=== PATIENT | female | born 1950 | race Two or more races ===

== ENCOUNTER → 2016-12-27 | Outpatient (CLI) | payer OTHER | LOC: BMCIMAGING 08:57 | PROVIDERS: ATTEND Internal Medicine | DX: J98.4 Other disorders of lung (principal); R91.1 Solitary pulmonary nodule ==

== ENCOUNTER → 2016-12-30 | Outpatient (CLI) | payer OTHER | LOC: BMCIMAGING 13:58 | PROVIDERS: ATTEND Internal Medicine | DX: R91.1 Solitary pulmonary nodule (principal) ==

== ENCOUNTER → 2017-02-07 | Outpatient (CLI) | payer OTHER | LOC: FIMAGING 10:51 | PROVIDERS: ATTEND Internal Medicine | DX: R91.1 Solitary pulmonary nodule (principal); R91.8 Other nonspecific abnormal finding of lung field; K76.0 Fatty (change of) liver, not elsewhere classified; I25.10 Atherosclerotic heart disease of native coronary artery without angina pectoris ==

== ENCOUNTER 2017-02-12 00:25 | Inpatient (IN) | payer OTHER ==
[2017-02-12] MEDS ORDERED: NS 2,300 ML IV ONE (00:42)
[2017-02-12] MEDS ORDERED: ACETAMINOPHEN 500 MG TAB PO ONE (00:44)
[2017-02-12] MEDS ORDERED: ACETAMINOPHEN 500 MG TAB ONE (00:44)
--- NOTE | 2017-02-12 00:44 | CPEKG ---
Heart Rate: 120 RR Interval: 500 P-R Interval: 116 QRSD Interval: 72 QT Interval: 312 QTC Interval: 441 P [place]: 8 QRS [place]: -34 T Wave [place]: 91 EKG Severity - ABNORMAL ECG - EKG Impression: SINUS TACHYCARDIA EKG Impression: LEFT AXIS DEVIATION EKG Impression: PROBABLE LVH WITH SECONDARY REPOL ABNRM Electronically Signed By: Dana Ivan 13-Feb-2017 06:05:30
[2017-02-12] MEDS ORDERED: IBUPROFEN 600 MG TAB PO ONE ×2 (00:45)
[2017-02-12 01:04] LABS: % IMMATURE GRANULYOCYTES 0.5 % (0.0-1.1); ABSOLUTE IMMATURE GRANULOCYTES 0.06 10^3/uL (0.00-0.10); ABSOLUTE NRBC COUNT 0.02 10^3/uL (0-0.01); ADD DIFF? NO; ADD MORPH? NO; ADD SCAN? NO; ATYPICAL LYMPHOCYTE FLAG 0 (0-99); FRAGMENT RBC FLAG 0 (0-99); HEMATOCRIT 41.2 % (38.0-47.0); HEMOGLOBIN 14.1 g/dL (12.6-16.3); LEFT SHIFT FLG 10 (0-99); LIPEMIA HEMOLYSIS FLAG 90 (0-99); MEAN CELL HEMOGLOBIN 30.6 pg (27.9-34.1); MEAN CELL HEMOGLOBIN CONCENTR. 34.2 g/dL (32.4-36.7); MEAN CELL VOLUME 89.4 fL (81.5-99.8); NRBC-AUTO% 0.2 % (0.0-0.2); PLATELET CLUMPS FLAG 10 (0-99); PLATELET COUNT 161 10^3/uL (150-400); RED BLOOD CELL COUNT 4.61 10^6/uL (4.18-5.33); RED CELL DISTRIBUTION WIDTH 13.2 % (11.5-15.2)
[2017-02-12 01:14] LABS: ANION GAP 13 mEq/L (8-16); BILIRUBIN,TOTAL 0.9 mg/dL (0.1-1.4); CALCIUM 9.7 mg/dL (8.5-10.4); CARBON DIOXIDE 25 mEq/l (22-31); CHLORIDE 101 mEq/L (97-110); CREATININE 0.7 mg/dL (0.6-1.0); GLOMERULAR FILTRATION RATE > 60; GLUCOSE 170 mg/dL (70-100); POTASSIUM 4.4 mEq/L (3.5-5.2); SODIUM 139 mEq/L (134-144)
[2017-02-12 01:26] LABS: APTT 26.9 SEC (23.0-38.0); INR 1.01 (0.83-1.16); PROTIME(PATIENT) 13.2 SEC (12.0-15.0)
[2017-02-12 01:41] LABS: COLOR YELLOW; LEUKOCYTE ESTERASE,URINE NEGATIVE (NEGATIVE); NITRITE,URINE NEGATIVE (NEGATIVE)
[2017-02-12 01:55] LABS: LACGHOST ORDER
[2017-02-12] MEDS ORDERED: AZITHROMYCIN 250 MG TAB PO ONE (01:57)
[2017-02-12] MEDS ORDERED: ONDANSETRON 4 MG/2 ML VIAL IVP PRN (02:59)
[2017-02-12] MEDS ORDERED: ACETAMINOPHEN 325 MG TAB PO PRN (02:59)
[2017-02-12] MEDS ORDERED: ALBUTEROL 3 ML DEYVIAL IH PRN (02:59)
[2017-02-12] MEDS ORDERED: ONDANSETRON DISINTEGRATING 4 MG TAB PO PRN (02:59)
--- NOTE | 2017-02-12 03:10 | EDPHY ---
H & P Stated Complaint: fever Time Seen by Provider: 02/12/17 00:43 HPI/ROS: HPI The patient presents with fever which began approximately 4:00 p.m. today which was associated with confusion. Her heard her talking to other people who were not in the room tonight. He said she felt hot. She has had a cough over the last 4 days which is getting progressively worse and is associated with shortness of breath. She is currently being evaluated for pulmonary problems and had a CT scan of her lungs recently for this. She has not had any runny nose, sore throat, diarrhea, vomiting, abdominal pain.. REVIEW OF SYSTEMS Constitutional: Positive for fever and chills Eyes: No discharge. ENT: No sore throat. Cardiovascular: No chest pain, no palpitations. Respiratory: Positive for cough, no shortness of breath. Gastrointestinal: No abdominal pain, no vomiting. Genitourinary: No hematuria. Musculoskeletal: No back pain. Skin: No rashes. Neurological: No headache. PMHx: Diabetes, recent pelvic surgery Soc Hx: Lives at home with her PHYSICAL General Appearance: Alert, no distress Eyes: Pupils equal and round no pallor or injection ENT, Mouth: Mucous membranes moist Respiratory: Slight tachypnea, no retractions, coarse breath sounds throughout all lung leonard Cardiovascular: Tachycardic rate with regular rhythm Gastrointestinal: Abdomen is soft and non-tender, no masses, bowel sounds normal Neurological: A&O, moves all extremities Skin: Warm and dry, no rashes Musculoskeletal: Neck is supple non tender Extremities: symmetrical, full range of motion Psychiatric: Patient is oriented X 3, there is no agitation Source: Patient, Family Exam Limitations: No limitations - Personal History Current Tetanus/Diphtheria Vaccine: Unsure Current Tetanus Diphtheria and Acellular Pertussis (TDAP): Unsure - Medical/Surgical History Hx Asthma: No Hx Chronic Respiratory Disease: No Hx Diabetes: Yes Hx Cardiac Disease: No Hx Renal Disease: No Hx Cirrhosis: No Hx Alcoholism: No Hx HIV/AIDS: No Hx Splenectomy or Spleen Trauma: No Other PMH: DM2, abd surgery 01/11, kidney problems - Social History Smoking Status: Never smoked Constitutional: Initial Vital Signs Temperature (C) 38.8 C H 02/12/17 00:28 Heart Rate 132 H 02/12/17 00:28 Respiratory Rate 32 H 02/12/17 00:28 Blood Pressure 137/78 H 02/12/17 00:28 O2 Sat (%) 85 L 02/12/17 00:28 O2 Delivery Mode Nasal Cannula O2 (L/minute) 4 Allergies/Adverse Reactions: No Known Allergies Allergy (Unverified 01/01/11 20:55) Home Medications: Medication Instructions Recorded "Diet Cntrolled Diabetes" 01/01/11 DULoxetine [Cymbalta] 60 mg PO DAILY 01/01/11 Oxycodone HCl [OXYCODONE HCL] 5 mg PO PRN 01/01/11 Pregabalin [Lyrica] 75 mg PO DAILY 01/01/11 Metformin HCl 02/12/17 Medical Decision Making - Diagnostics Imaging Results: Chest x-ray two views shows no obvious infiltrate, no cardiomegaly, interpreted by me, radiology interpretation is pending. Differential Diagnosis: This is a 66-year-old female with diabetes who presents with fever over the last several hours and cough for the last 4 days. On exam she is tachycardic, febrile, hypoxic. She has coarse breath sounds. Differential diagnosis includes sepsis, pneumonia, UTI, CHF exacerbation. In the emergency room, patient was given a fluid bolus, blood cultures were checked, initial lactate returned at 3. Repeat lactate trended down to 2.2. She did have a leukocytosis. Chest x-ray was unremarkable, however pneumonia is most likely diagnosis, thus patient was given ceftriaxone and azithromycin. She will be admitted to the hospitalist service and I have consulted with Dr. Radford. Critical Care Time: CRITICAL CARE Critical care time spent by me, Dr. Ivan, exclusively with this patient was 30 minutes, exclusive of PA time and exclusive of procedures. The organ system at risk was cardiac and I gave IV fluids, broad-spectrum antibiotics, admitted the patient to the hospitalist service for sepsis to prevent worsening of the patients condition. - Data Points Laboratory Results: Laboratory Results 02/12/17 00:44 02/12/17 00:44 02/12/17 02/12/17 02/12/17 02:25 01:34 00:44 WBC RBC Hgb POC Hgb Hct POC Hct MCV MCH MCHC RDW Plt Count MPV Neut % (Auto) Lymph % (Auto) [place] % (Auto) Eos % (Auto) Baso % (Auto) Nucleat RBC Rel Count Absolute Neuts (auto) Absolute Lymphs (auto) Absolute Monos (auto) Absolute Eos (auto) Absolute Basos (auto) Absolute Nucleated RBC Immature Gran % Immature Gran # PT INR APTT VBG Lactic Acid 2.2 mmol/L H mmol/L (0.7-2.1) POC Sodium Sodium 139 mEq/L mEq/L (134-144) POC Potassium Potassium 4.4 mEq/L mEq/L (3.5-5.2) POC Chloride Chloride 101 mEq/L mEq/L (97-110) Carbon Dioxide 25 mEq/l mEq/l (22-31) Anion Gap 13 mEq/L mEq/L (8-16) POC BUN BUN 16 mg/dL mg/dL (7-23) Creatinine 0.7 mg/dL mg/dL (0.6-1.0) POC Creatinine Estimated GFR > 60 Glucose 170 mg/dL H mg/dL (70-100) POC Glucose Calcium 9.7 mg/dL mg/dL (8.5-10.4) Total Bilirubin 0.9 mg/dL mg/dL (0.1-1.4) Urine Color YELLOW Urine Appearance MODERATELY TURBID Urine pH 7.0 (5.0-7.5) Ur Specific [place] 1.015 (1.002-1.030) Urine Protein NEGATIVE (NEGATIVE) Urine Ketones NEGATIVE (NEGATIVE) Urine Blood NEGATIVE (NEGATIVE) Urine Nitrate NEGATIVE (NEGATIVE) Urine Bilirubin NEGATIVE (NEGATIVE) Urine Urobilinogen NEGATIVE EU EU (0.2-1.0) Ur Leukocyte Esterase NEGATIVE (NEGATIVE) Urine Glucose NEGATIVE (NEGATIVE) 02/12/17 02/12/17 02/12/17 00:44 00:44 00:44 WBC 13.31 10^3/uL H 10^3/uL (3.80-9.50) RBC 4.61 10^6/uL 10^6/uL (4.18-5.33) Hgb 14.1 g/dL g/dL (12.6-16.3) POC Hgb Hct 41.2 % % (38.0-47.0) POC Hct MCV 89.4 fL fL (81.5-99.8) MCH 30.6 pg pg (27.9-34.1) MCHC 34.2 g/dL g/dL (32.4-36.7) RDW 13.2 % % (11.5-15.2) Plt Count 161 10^3/uL 10^3/uL (150-400) MPV 11.0 fL fL (8.7-11.7) Neut % (Auto) 69.3 % % (39.3-74.2) Lymph % (Auto) 23.3 % % (15.0-45.0) [place] % (Auto) 5.9 % % (4.5-13.0) Eos % (Auto) 0.5 % L % (0.6-7.6) Baso % (Auto) 0.5 % % (0.3-1.7) Nucleat RBC Rel Count 0.2 % % (0.0-0.2) Absolute Neuts (auto) 9.22 10^3/uL H 10^3/uL (1.70-6.50) Absolute Lymphs (auto) 3.10 10^3/uL H 10^3/uL (1.00-3.00) Absolute Monos (auto) 0.79 10^3/uL 10^3/uL (0.30-0.80) Absolute Eos (auto) 0.07 10^3/uL 10^3/uL (0.03-0.40) Absolute Basos (auto) 0.07 10^3/uL 10^3/uL (0.02-0.10) Absolute Nucleated RBC 0.02 10^3/uL H 10^3/uL (0-0.01) Immature Gran % 0.5 % % (0.0-1.1) Immature Gran # 0.06 10^3/uL 10^3/uL (0.00-0.10) PT 13.2 SEC SEC (12.0-15.0) INR 1.01 (0.83-1.16) APTT 26.9 SEC SEC (23.0-38.0) VBG Lactic Acid 3.0 mmol/L H mmol/L (0.7-2.1) POC Sodium Sodium POC Potassium Potassium POC Chloride Chloride Carbon Dioxide Anion Gap POC BUN BUN Creatinine POC Creatinine Estimated GFR Glucose POC Glucose Calcium Total Bilirubin Urine Color Urine Appearance Urine pH Ur Specific [place] Urine Protein Urine Ketones Urine Blood Urine Nitrate Urine Bilirubin Urine Urobilinogen Ur Leukocyte Esterase Urine Glucose 02/12/17 00:43 WBC RBC Hgb POC Hgb 14.6 gm/dL gm/dL (12.6-16.3) Hct POC Hct 43 % % (38-47) MCV MCH MCHC RDW Plt Count MPV Neut % (Auto) Lymph % (Auto) [place] % (Auto) Eos % (Auto) Baso % (Auto) Nucleat RBC Rel Count Absolute Neuts (auto) Absolute Lymphs (auto) Absolute Monos (auto) Absolute Eos (auto) Absolute Basos (auto) Absolute Nucleated RBC Immature Gran % Immature Gran # PT INR APTT VBG Lactic Acid POC Sodium 139 mEq/L mEq/L (134-144) Sodium POC Potassium 4.1 mEq/L mEq/L (3.3-5.0) Potassium POC Chloride 97 mEq/L mEq/L (97-110) Chloride Carbon Dioxide Anion Gap POC BUN 17 mg/dL mg/dL (7-23) BUN Creatinine POC Creatinine 0.7 mg/dL mg/dL (0.6-1.0) Estimated GFR Glucose POC Glucose 176 mg/dL H mg/dL (70-100) Calcium Total Bilirubin Urine Color Urine Appearance Urine pH Ur Specific [place] Urine Protein Urine Ketones Urine Blood Urine Nitrate Urine Bilirubin Urine Urobilinogen Ur Leukocyte Esterase Urine Glucose Medications Given: Discontinued Medications Acetaminophen (Tylenol) 1,000 mg PO EDNOW ONE Stop: 02/12/17 00:45 Last Admin: 02/12/17 00:52 Dose: 1,000 mg Azithromycin (Zithromax) 500 mg PO EDNOW ONE PRN Reason: Protocol Stop: 02/12/17 01:58 Last Admin: 02/12/17 02:40 Dose: 500 mg Sodium Chloride (Ns) 2,300 mls @ 4,600 mls/hr 30 ml/kg infuse over 30 min ( 2300 ml) IV EDNOW ONE PRN Reason: Protocol Stop: 02/12/17 01:11 Last Admin: 02/12/17 00:52 Dose: 2,300 mls Ceftriaxone Sodium/Dextrose (Rocephin 1 Gm (Premix)) 50 mls @ 100 mls/hr IV EDNOW ONE PRN Reason: Protocol Stop: 02/12/17 02:26 Last Admin: 02/12/17 02:18 Dose: 50 mls Ibuprofen (Motrin) 600 mg PO EDNOW ONE Stop: 02/12/17 00:46 Last Admin: 02/12/17 00:52 Dose: 600 mg Point of Care Test Results: 02/12/17 00:43 POC Sodium 139 POC Potassium 4.1 POC Chloride 97 POC BUN 17 POC Creatinine 0.7 POC Glucose 176 H Departure - Departure Disposition: [facility] Inpatient Acute Clinical Impression: Cough Sepsis Qualifiers: Sepsis type: sepsis due to unspecified organism Qualified Code(s): A41.9 - Sepsis, unspecified organism Condition: Good
[2017-02-12 05:15] LABS: % IMMATURE GRANULYOCYTES 0.5 % (0.0-1.1); ABSOLUTE IMMATURE GRANULOCYTES 0.06 10^3/uL (0.00-0.10); ADD DIFF? NO; ADD MORPH? NO; ADD SCAN? NO; ATYPICAL LYMPHOCYTE FLAG 10 (0-99); FRAGMENT RBC FLAG 0 (0-99); HEMATOCRIT 35.5 % (38.0-47.0); HEMOGLOBIN 11.7 g/dL (12.6-16.3); LEFT SHIFT FLG 10 (0-99); LIPEMIA HEMOLYSIS FLAG 80 (0-99); MEAN CELL HEMOGLOBIN 30.4 pg (27.9-34.1); MEAN CELL VOLUME 92.2 fL (81.5-99.8); MEAN PLATELET VOLUME 11.1 fL (8.7-11.7); PLATELET CLUMPS FLAG 0 (0-99); PLATELET COUNT 135 10^3/uL (150-400); RED BLOOD CELL COUNT 3.85 10^6/uL (4.18-5.33); RED CELL DISTRIBUTION WIDTH 13.3 % (11.5-15.2)
[2017-02-12 05:30] LABS: ALANINE AMINOTRANSFERASE 70 IU/L (9-52); ALBUMIN 3.4 g/dL (3.5-5.0); ALKALINE PHOSPHATASE 78 IU/L (38-126); ANION GAP 12 mEq/L (8-16); ASPARTATE AMINOTRANSFERASE 49 IU/L (14-46); BILIRUBIN,TOTAL 0.6 mg/dL (0.1-1.4); CALCIUM 8.2 mg/dL (8.5-10.4); CARBON DIOXIDE 21 mEq/l (22-31); CHLORIDE 109 mEq/L (97-110); CREATININE 0.6 mg/dL (0.6-1.0); GLOMERULAR FILTRATION RATE > 60; GLUCOSE 162 mg/dL (70-100); POTASSIUM 3.8 mEq/L (3.5-5.2); SODIUM 142 mEq/L (134-144); TOTAL PROTEIN 5.3 g/dL (6.3-8.2)
[2017-02-12 05:37] LABS: TROPONIN I < 0.012 ng/mL (0-0.034)
[2017-02-12] MEDS: IPRATROPIUM/ALBUTEROL 3 ML DEYVIAL IH SCH ×4 (06:17→22:36)
--- NOTE | 2017-02-12 07:49 | GHP ---
[f rep st] HISTORY AND PHYSICAL DATE OF ADMISSION: 02/12/2017 CHIEF COMPLAINT: Fever. HISTORY OF PRESENT ILLNESS: This is a 66-year-old female, who was brought in by her for having a fever. She is also noted to be somewhat confused. I am seeing her without her , and she is quite a poor historian. Per report, however, fever began today, as did the confusion. She has had some cough recently, productive of sputum. She had a recent CT scan. She is unable to tell me why she had this. She also tells me that she had a recent pelvic/ abdominal surgery, she does not remember exactly the details of that at this point either. She has a headache, no nausea, vomiting. No abdominal pain, some dysuria. PAST MEDICAL HISTORY: She denies, though, I see that she has metformin and Cymbalta on her med list. MEDICATIONS: Please see medication reconciliation. ALLERGIES: No known drug allergies. FAMILY HISTORY: Reviewed and noncontributory. SOCIAL HISTORY: She lives with her . REVIEW OF SYSTEMS: A 10-point review of systems is conducted and is negative, except per HPI. PHYSICAL EXAM: VITAL SIGNS: Blood pressure 130/71, heart rate 85, initially 132, respiration rate was initially 32, satting at 85% on room air. Temperature is 38.8. GENERAL: The patient is a pleasant female, who is having difficulty answering questions, in mild distress. HEENT: Shows her to be normocephalic, atraumatic. CARDIOVASCULAR: Shows a regular rate and rhythm. There are no murmurs, rubs, or gallops. PULMONARY: Shows her to be in mild respiratory distress. She has diffuse expiratory wheezes, as well as inspiratory rhonchi. ABDOMINAL: Soft. Nontender to palpation. She does have a few mild laparoscopic entry points in her low pelvis. SKIN: Shows no rash. : No James. NEUROLOGIC: Shows her to be confused. She is able to answer questions, but does not remember recent events. PSYCHIATRIC: Shows normal mood and affect. LABS: White count is 13,000, with a normal differential. INR is 1. Lactate is 2.2. Basic metabolic panel is normal. Urinalysis is negative. DATA: 1. I discussed this with Dr. Ivan. We will plan to admit to med/surg. 2. Chest x-ray, which I personally reviewed and interpreted, shows no acute infiltrates. 3. ECG shows sinus tachycardia. She has T-wave inversions in V1 through V5, possible mild ST depressions in I and L. There are no olds to compare this to. IMPRESSION AND PLAN: A 66-year-old female, presents with sepsis: 1. Sepsis: Presumed source is pulmonary. Also consider abdominal given her recent surgery, though her exam is benign. We will treat for community- acquired pneumonia and follow her clinical course very closely. Evidence of end -organ damage with lactate of 3 on presentation. 2. Pulmonary infection: Abnormal exam. She had a recent CT scan showing new tree-in-bud nodules with stable bronchiectasis. Clearly something had been going on, although, she is unable to provide much history. The history is of a solitary pulmonary nodule, per the report. She was hypoxic on presentation. Her exam is very abnormal. We will treat her for community-acquired pneumonia, check respiratory viral PCR, sputum culture. If she does not improve, would consider pulmonary consult for possible bronchoscopy, but I do not think we need this at this point. 3. Encephalopathy: I presume that this is metabolic. I will not image her head at this point with a nonfocal neurologic exam. If she does not clear would consider imaging. 4. Abnormal EKG: She is not having any chest pain. I will check one troponin with her morning labs. 5. Coronary artery atherosclerosis in the LAD: This was seen on CT scan. Could probably be followed as an outpatient, unless her troponin is positive. 6. Venous thromboembolism risk is moderate. I will give her Lovenox. /[id number]/MODL MTDD
[2017-02-12] MEDS: guaiFENesin 600 MG TAB.ER PO SCH ×2 (08:35→21:35)
[2017-02-12] MEDS: ENOXAPARIN 40 MG/0.4 ML SYR SC SCH (08:35)
[2017-02-12] MEDS: AZITHROMYCIN IV 500 MG in D5W 250 ML IV SCH (09:18)
[2017-02-12] MEDS ORDERED: OXYCODONE/APAP 5/325 TAB PO PRN (12:37)
[2017-02-12] MEDS ORDERED: IOPAMIDOL (ISOVUE-300) 100 ML BTL ONE (15:05)
[2017-02-12] MEDS: PREGABALIN 75 MG CAP PO SCH ×2 (15:08→21:35)
[2017-02-12] MEDS: NS 1,000 ML IV SCH (17:54)
[2017-02-12] MEDS: POLYETHYLENE GLYCOL 3350 17 GM PKT PO SCH (19:46)
[2017-02-12] MEDS ORDERED: MIRTAZAPINE 30 MG TAB PO SCH (21:00)
[2017-02-12] MEDS ORDERED: TEMAZEPAM 15 MG CAP PO PRN (21:52)
[2017-02-13] MEDS: NS 1,000 ML IV SCH (02:28)
[2017-02-13] MEDS: IPRATROPIUM/ALBUTEROL 3 ML DEYVIAL IH SCH ×2 (06:22→11:04)
[2017-02-13] MEDS ORDERED: DULoxetine 60 MG CAP PO SCH (09:00)
[2017-02-13] MEDS: PREGABALIN 75 MG CAP PO SCH (09:40)
[2017-02-13] MEDS: POLYETHYLENE GLYCOL 3350 17 GM PKT PO SCH (09:41)
[2017-02-13] MEDS: AZITHROMYCIN IV 500 MG in D5W 250 ML IV SCH (09:41)
[2017-02-13] MEDS: guaiFENesin 600 MG TAB.ER PO SCH (09:41)
[2017-02-13] MEDS: ENOXAPARIN 40 MG/0.4 ML SYR SC SCH (09:41)
--- NOTE | 2017-02-13 10:13 | HOSPPROG ---
Hospitalist Progress Note Assessment/Plan: 66 yo F a/w encephalopathy and fever and questionable pneumonia pneumonia: chest CT in days prior to admit w tree in bud pattern. cxr here w atelectasis and bronchitis reasonable to treat as suspected CAP given fever and encephalopathy encephalopathy: reolved constipation: rec bid miralax until bm, then daily dispo: home today > 30 minutes on dc Subjective: CT scan w no diverticulitis (images reviewed/interpreted by me). reasdy for dc Objective: Vital Signs Temp Pulse Resp BP Pulse Ox 36.7 C 74 18 135/62 H 93 02/13/17 07:27 02/13/17 07:27 02/13/17 07:27 02/13/17 07:27 02/13/17 07:27 Laboratory Results 02/12/17 04:49 02/12/17 04:49 02/12/17 02/13/17 02/14/17 05:59 05:59 05:59 Intake Total 2500 1950 Output Total 800 Balance 1700 1950 PT 13.2 SEC (12.0-15.0) 02/12/17 00:44 INR 1.01 (0.83-1.16) 02/12/17 00:44 - Physical Exam Constitutional: no apparent distress, appears nourished Eyes: PERRL, anicteric sclera Ears, Nose, Mouth, Throat: moist mucous membranes, hearing normal Cardiovascular: regular rate and rhythym, no murmur, rub, or gallop Respiratory: no respiratory distress, no rales or rhonchi Gastrointestinal: normoactive bowel sounds, soft, non-tender abdomen Genitourinary: no bladder fullness, No romero in urethra Skin: warm, normal color Musculoskeletal: full muscle strength, no muscle tenderness Neurologic: AAOx3 Psychiatric: interacting appropriately ICD10 Worksheet Patient Problems: Problems Problem Status Onset Cough Acute Sepsis Acute
[2017-02-13 11:15] VITALS: BP 140/83; PULSE 90; RESP 18; TEMP 98.4; O2SAT 91
--- NOTE | 2017-02-13 20:55 | GDS ---
[f rep st] DISCHARGE SUMMARY DISCHARGE DIAGNOSES: 1. Encephalopathy. 2. Suspected community-acquired pneumonia. 3. Constipation. 4. Continuous narcotic use. HOSPITAL COURSE: Please see admission history and physical by Dr. Radford. The patient presented w ith a fever of 38.8 and confusion. She recently had a CAT scan performed as an outpatient on the of this month showing a tree-in-bud pattern in her lungs. The reasons this was obtained were not ed for solitary pulmonary nodule. This was felt to be inflammatory infectious. She presented with fever. She was started on antibiotics for community-acquired pneumonia. She was defervesced in the hospital. She had an elevated lactate that improved consistent with sepsis. Her encephalopathy re solved. She had some left lower quadrant tenderness, so abdominal CT was obtained showing diverticu losis without diverticulitis. She was also noted to have constipation, and she was given a bowel re gimen of MiraLAX b.i.d. She was discharged on this as well. Discharge antibiotics are Augmentin an d azithromycin to complete a 10 day course. I have discussed the discharge with Dr. Reno Crowley, h primary care physician. /[id number]/MODL
== END 2017-02-13 12:24 | disposition home or self-care (01) | DRG 871 ==
LOC: OBSVTOIN 02:59 → F3E 03:22
PROVIDERS: ADMIT Student in an Organized Health Care Education/Training Program; ATTEND Internal Medicine
DX: A41.9 Sepsis, unspecified organism (principal); J18.9 Pneumonia, unspecified organism; G93.41 Metabolic encephalopathy; R94.31 Abnormal electrocardiogram [ECG] [EKG]; I25.10 Atherosclerotic heart disease of native coronary artery without angina pectoris; K59.00 Constipation, unspecified; K57.90 Diverticulosis of intestine, part unspecified, without perforation or abscess without bleeding
CPT/HCPCS: 82947-QW; 96365; J0456; J0696; J1650; Q9967

== ENCOUNTER → 2017-03-04 | Outpatient (CLI) | payer OTHER | LOC: FIMAGING 10:25 | PROVIDERS: ATTEND Internal Medicine | DX: Z12.31 Encounter for screening mammogram for malignant neoplasm of breast (principal) | CPT/HCPCS: G0202 ==

== ENCOUNTER → 2017-06-30 | Outpatient (CLI) | payer OTHER | LOC: FIMAGING 09:41 | PROVIDERS: ATTEND Internal Medicine | DX: R91.1 Solitary pulmonary nodule (principal); J47.9 Bronchiectasis, uncomplicated; K76.0 Fatty (change of) liver, not elsewhere classified ==

== ENCOUNTER → 2017-12-12 | Outpatient (CLI) | payer OTHER | LOC: FIMAGING 09:19 | PROVIDERS: ATTEND Internal Medicine | DX: J47.9 Bronchiectasis, uncomplicated (principal); J84.10 Pulmonary fibrosis, unspecified; K76.89 Other specified diseases of liver ==

== ENCOUNTER → 2018-04-30 | Outpatient (CLI) | payer OTHER | LOC: FIMAGING 12:35 | PROVIDERS: ATTEND Internal Medicine | DX: Z12.31 Encounter for screening mammogram for malignant neoplasm of breast (principal) ==

== ENCOUNTER → 2018-12-18 | Outpatient (CLI) | payer OTHER | LOC: BMCIMAGING 11:18 | PROVIDERS: ATTEND Internal Medicine | DX: J40 Bronchitis, not specified as acute or chronic (principal) ==